=== PATIENT | male | born 1965 | race Caucasian/White ===

== ENCOUNTER 2021-01-04 17:11 | Emergency (ER) | payer BC, SELFPAY ==
--- NOTE | 2021-01-04 17:15 | ED.UPPEXIN ---
HPI - Extremity Injury (Upper) General Chief Complaint: Extremity Injury, Upper Stated Complaint: left hand swollen Time Seen by Provider: 01/04/21 17:17 Source: patient and RN notes reviewed History of Present Illness HPI narrative: Patient is a 55-year-old male who presents the urgent care with complaints of redness and swelling to the left hand. Patient states that it started approximately 24 hours ago with a small bump on the left hand and now within the last hour he had redness and streaking all the way up to the left elbow. Patient states he took ibuprofen last night. Denies of any known fevers, nausea, vomiting. Denies of any known injury or cut to the hand. No other acute complaints. No acute distress noted. Patient aware of the plan of care. Some parts of this dictation were generated by voice recognition software and may contain typographical and/or grammatical inaccuracies. Related Data Allergies Allergy/AdvReac Type Severity Reaction Status Date / Time No Known Allergies Allergy Unknown Unverified 01/04/21 17:24 Review of Systems Review of Systems: Narrative: CONSTITUTIONAL: Denies fever, chills, or sweats. EYES: Denies visual changes, redness, or discharge. ENT: Denies rhinorrhea, congestion, sore throat, or otalgia. CARDIOVASCULAR: Denies chest pain, palpitations, or edema. RESPIRATORY: Denies cough or dyspnea. GASTROINTESTINAL: Denies abdominal pain, nausea, vomiting, or diarrhea. GENITOURINARY: Denies dysuria or hematuria. SKIN: Reports of streaking up the left arm MUSCULOSKELETAL: Reports of redness and swelling to the left hand NEUROLOGIC: Denies headache, numbness, or weakness. All other systems reviewed are negative, except as documented in HPI. [facility] Family History Family History (Updated 06/05/16 @ 08:49 by DOCTOR UNKNOWN) Father Family history of lung cancer Mother Family history of malignant neoplasm of ovary Social History Social History Smoking status: Never smoker Alcohol intake: current Comments At the time of my signature, I reviewed and agree with the nursing past medical, surgical, social, and family history. There is no relevant family history pertinent to the patient complaint. Exam Narrative: Exam Narrative: GENERAL: This is a well-nourished, well-developed patient, in no apparent distress. HEAD: normocephalic, atraumatic. EYES: PERRL. Sclera clear/white. Vision is grossly intact. EARS: External ears normal NOSE: External nose normal with no obvious nasal discharge, nares without redness, no rhinorrhea. THROAT: Mucous membranes moist NECK: Neck supple CARDIOVASCULAR: Regular rate and rhythm without murmurs, gallops, or rubs. RESPIRATORY: Clear to auscultation. Breath sounds equal bilaterally. No wheezes, rales, or rhonchi. SKIN: 3 cm irregular area of ecchymosis/possible injury to the radial aspect of the left dorsal hand with 25 cm red streaking to the left antecubital fossa region NEURO: awake, alert, and oriented to person, place and time. There were no obvious focal neurologic abnormalities. EXTREMITIES: Mild edema and erythema noted to the dorsal radial aspect of the left hand without any obvious deformity or fracture. Range of motion within normal limits. Positive strong left radial pulse with capillary refill less than 2 seconds. Course Vital Signs Vital signs: Vital Signs Temperature 97.6 F 01/04/21 17:18 Pulse Rate 69 01/04/21 17:18 Respiratory Rate 18 01/04/21 17:18 Blood Pressure 122/90 01/04/21 17:18 Pulse Oximetry 100 01/04/21 17:18 Temperature 97.6 F 01/04/21 17:18 Pulse Rate 69 01/04/21 17:18 Respiratory Rate 18 01/04/21 17:18 Blood Pressure 122/90 01/04/21 17:18 Pulse Oximetry 100 01/04/21 17:18 Reviewed MDM - Extremity Injury (Upper) MDM Narrative Medical decision making narrative: Advised the patient to complete the oral antibiotic regimen as prescribed. Be sure to eat and drink with the medication. Med
[2021-01-04 17:18] VITALS: BP 122/90; PULSE 69; RESP 18; TEMP 36.4; O2SAT 100
== END 2021-01-04 17:30 | disposition home or self-care (01) ==
PROVIDERS: Emergency Provider Nurse Practitioner Family; PCP Internal Medicine Infectious Disease
DX: L03.114 Cellulitis of left upper limb (principal)
CPT/HCPCS: 99203; G0463